=== PATIENT | male | born 1940 | race Caucasian/White ===

== ENCOUNTER → 2016-12-05 | Day surgery (SDC) | payer MEDICARE ==
[~2016-12-05] MED LIST: ACETAMINOPHEN 325MG TABLET PO PRN; ASPI-1035 PO; ATROPINE SULFATE 1MG/10ML SYR IV PRN; CLOP75TA2 PO; FENTANYL CITRATE/PF 50MCG/ML 2ML VIAL ONE; HEPARIN SODIUM 1,000 UNIT/1ML VIAL IV ONE; IOHEXOL-300 100 ML BOTTLE ONE; LIDOCAINE HCL 1% 20ML VIAL (Pyxis) INJ ONE; MIDAZOLAM HCL 2 MG/2 ML VIAL ONE; NICARDIPINE 100MCG/ML 10ML VIAL (CATH LAB) IV ONE; NITROGLYCERIN 50MCG/ML 10ML VIAL (CATH LAB) IV ONE; SIMV20TA6 PO; [UNRECOGNIZED DRUG - CODE] PO
== END | disposition home or self-care (01) ==
LOC: CCL 07:40
PROVIDERS: ATTEND Specialist
DX: I25.110 Atherosclerotic heart disease of native coronary artery with unstable angina pectoris (principal); I11.9 Hypertensive heart disease without heart failure; E11.9 Type 2 diabetes mellitus without complications; E78.5 Hyperlipidemia, unspecified; G51.0 Bell's palsy; Z87.891 Personal history of nicotine dependence
CPT/HCPCS: 93458; C1769; C1887; C1893; J1644; J2250; J3010; J3490; Q9967

== ENCOUNTER 2019-01-07 11:45 | Day surgery (SDC) | payer MEDICARE ==
[~2019-01-07] VITALS: Ht 177.8 cm; Wt 85.7 kg
[~2019-01-07 11:45] MED LIST changes: -ACETAMINOPHEN 325MG TABLET PO PRN; -ASPI-1035 PO; +ASPI-1158 PO; -ATROPINE SULFATE 1MG/10ML SYR IV PRN; -CLOP75TA2 PO; +CLOP75TA4 PO; -FENTANYL CITRATE/PF 50MCG/ML 2ML VIAL ONE; -HEPARIN SODIUM 1,000 UNIT/1ML VIAL IV ONE; -IOHEXOL-300 100 ML BOTTLE ONE; -LIDOCAINE HCL 1% 20ML VIAL (Pyxis) INJ ONE; -MIDAZOLAM HCL 2 MG/2 ML VIAL ONE; -NICARDIPINE 100MCG/ML 10ML VIAL (CATH LAB) IV ONE; -NITROGLYCERIN 50MCG/ML 10ML VIAL (CATH LAB) IV ONE
[2019-01-07] MEDS ORDERED: TAMS0.4C31 PO (13:06)
[2019-01-07] MEDS ORDERED: NITR0.4T SL (13:06)
[2019-01-07] MEDS ORDERED: MONT10TA21 PO (13:06)
[2019-01-07] MEDS ORDERED: BEPO10DR OP (13:06)
[2019-01-07] MEDS ORDERED: IODIXANOL 320MG/ML 100 ML BOTTLE IV ONE (13:45)
[2019-01-07] MEDS ORDERED: LIDOCAINE HCL 1% 20ML VIAL (Pyxis) INJ ONE (13:45)
[2019-01-07] MEDS ORDERED: MIDAZOLAM HCL 2 MG/2 ML VIAL ONE (13:51)
[2019-01-07] MEDS ORDERED: FENTANYL CITRATE/PF 50MCG/ML 2ML VIAL ONE (13:51)
[2019-01-07] MEDS ORDERED: NICARDIPINE 100MCG/ML 10ML VIAL (CATH LAB) IV ONE (14:47)
[2019-01-07] MEDS ORDERED: PHENYLEPHRINE 100MCG/ML 10ML VIAL (CATH LAB) IV ONE (14:47)
[2019-01-07] MEDS ORDERED: NITROGLYCERIN 50MCG/ML 10ML VIAL (CATH LAB) IV ONE (14:47)
[2019-01-07] MEDS ORDERED: HEPARIN SODIUM 1,000 UNIT/1ML VIAL IV ONE (14:47)
[2019-01-07] MEDS ORDERED: ACETAMINOPHEN 325MG TABLET PO PRN (15:00)
[2019-01-07] MEDS ORDERED: ONDANSETRON HCL 4MG/2ML INJ IV PRN (15:00)
[2019-01-07] MEDS ORDERED: ATROPINE SULFATE 1MG/10ML SYR IV PRN (15:00)
== END 2019-01-07 18:15 | disposition home or self-care (01) ==
LOC: CCL 11:45
PROVIDERS: ATTEND Specialist
DX: I25.10 Atherosclerotic heart disease of native coronary artery without angina pectoris (principal); I11.9 Hypertensive heart disease without heart failure; E11.9 Type 2 diabetes mellitus without complications; E78.5 Hyperlipidemia, unspecified; Z95.5 Presence of coronary angioplasty implant and graft; Z87.891 Personal history of nicotine dependence
CPT/HCPCS: 93458; 99152; 99153; C1769; C1887; C1893; J1644; J2250; J2370; J3010; J3490; Q9967; G0500